=== PATIENT | female | born 1955 | race Caucasian/White ===

== ENCOUNTER 2017-06-28 08:00 | Outpatient (CLI) | payer OTHER ==
[~2017-06-28] VITALS: Ht 142.2 cm; Wt 104.3 kg
[~2017-06-28 08:00] MED LIST: /HCTZ25TA PO; EPIP0.3I2 IM; FLUT50SP; INSUH10VL INJ; INSULANT SC; LISI5TAB PO; LORA10TA2 PO; VITAD1000T PO; [UNRECOGNIZED DRUG - CODE] IV; [UNRECOGNIZED DRUG - CODE] PO
[2017-06-28] MEDS ORDERED: ALTEPLASE 2 MG/2 ML VIAL (J2997 PER 1MG) IV ONE (08:30)
[2017-06-28] MEDS ORDERED: SODIUM CHLORIDE 0.9% INJ 10 ML SYR IV SCH (09:00)
== END 2017-06-28 09:45 | disposition home or self-care (01) ==
LOC: M INFU 08:00
PROVIDERS: ATTEND Surgery
DX: T78.3XXA Angioneurotic edema, initial encounter (principal); Z79.4 Long term (current) use of insulin; Z79.899 Other long term (current) drug therapy
CPT/HCPCS: 36415; 96365; J2997

== ENCOUNTER 2018-02-21 07:28 | Outpatient (CLI) | payer OTHER ==
[2018-02-21] MEDS: ALTEPLASE 2 MG/2 ML VIAL (J2997 PER 1MG) XX (08:11)
[2018-02-21] MEDS: SODIUM CHLORIDE 0.9% INJ 10 ML SYR IV (09:26)
== END 2018-02-21 09:40 | disposition home or self-care (01) ==
LOC: M INFU 07:28
DX: T78.3XXA Angioneurotic edema, initial encounter (principal); Z79.899 Other long term (current) drug therapy; Z79.4 Long term (current) use of insulin
CPT/HCPCS: J2997

== ENCOUNTER 2018-10-02 15:20 | Emergency (ER) | payer OTHER ==
[~2018-10-02] VITALS: Ht 167.6 cm; Wt 109.1 kg
[2018-10-02] MEDS ORDERED: DEXTROSE 50% 50 ML SYRINGE IV STA (15:32)
[2018-10-02] MEDS ORDERED: LANTINJ4 SC (15:52)
[2018-10-02] MEDS ORDERED: CRES10TA32 (15:52)
[2018-10-02] MEDS ORDERED: [UNRECOGNIZED DRUG - CODE] (15:52)
[2018-10-02 15:54] LABS: BASO % 0.1 % (0.0-1.0); EOS % 0.3 % (0.0-3.0); HEMATOCRIT 48.8 % (36.0-47.0); HEMOGLOBIN 15.6 g/dl (12.0-15.5); LYMPH # 1.8 10^3/uL (1.5-4.5); LYMPH % 13.2 % (24.0-44.0); MEAN CORPUSCULAR HEMOGLOBIN 28.5 pg (27.0-33.0); MEAN CORPUSCULAR VOLUME 89.1 fl (80.0-96.0); MONO # 0.6 10^3/uL (0.0-0.8); MONO % 3.9 % (0.0-5.0); NEUTROPHILS # 11.4 10^3/uL (1.8-7.7); NEUTROPHILS % 82.1 % (36.0-66.0); PLATELET COUNT, AUTOMATED 271 10^3/uL (150-450); RED BLOOD COUNT 5.48 10^6/uL (4.00-5.40); WHITE BLOOD COUNT 13.9 10^3/uL (4.0-10.0)
[2018-10-02 16:22] LABS: BLOOD UREA NITROGEN 10 MG/DL (7-18); CARBON DIOXIDE LEVEL 30 MEQ/L (21-32); CHLORIDE LEVEL 104 MEQ/L (98-107); CREATININE FOR GFR 0.67 MG/DL (0.55-1.30); GLOMERULAR FILTRATION RATE > 60.0 (>45); GLUCOSE, FASTING 47 MG/DL (70-100); POTASSIUM SERUM 4.2 MEQ/L (3.5-5.1); SODIUM LEVEL 142 MEQ/L (136-145)
[2018-10-02 17:01] LABS: CPK CREATINE PHOSPHOKINASE 82 U/L (26-192); MB/CK RELATIVE INDEX 1.34 (< OR =4); TROPONIN I < 0.02 NG/ML (< 0.10)
--- NOTE | 2018-10-02 17:44 | REP ---
CHEST PA AND LATERAL: 10/02/2018. Comparison: 09/23/2013. Clinical history: Dizziness. Findings: There is an indwelling port catheter via the right subclavian route terminating in the SVC. Lungs are hypoinflated. There is underlying interstitial fibrotic changes without pleural effusion, dense consolidation or parenchymal mass. Crowding of markings due to hypoinflation. The aorta is tortuous somewhat calcified but not enlarged for this degree of inflation. Airway is intact. There are degenerative changes throughout the spine and shoulders. There is no free air under the diaphragm. Impression. 1. Interstitial fibrosis heaviest in the bases with hypoinflation. 2. No cardiomegaly, edema, effusion or definite acute infiltrate. 3. Degenerative changes in the spine, indwelling port catheter. Electronically Signed by Jayson Calvillo MD 10/02/2018 09:27 P
[2018-10-02 18:50] VITALS: BP 175/76
--- NOTE | 2018-10-03 08:07 | ECGEPIP ---
Stationary ECG Study [facility] - ED Test Date: 2018-10-02 Pat Name: ESTHRE ROMERO Department: Room: - Gender: F [employer] Machine Operator: [facility] [place] : 1955 Requested By: LUNA Marte Order Number: [id number] Reading MD: Mendel Lundberg Measurements Intervals [place] Rate: 77 P: 43 WI: 128 QRS: 20 QRSD: 83 T: 51 QT: 370 QTc: 420 Interpretive Statements SINUS RHYTHM NSTTW ABNORMALITIES NO PRIORS FOR COMPARISON Electronically Signed On 10-03-2018 8:07:27 EST by Mendel Lundberg
== END 2018-10-02 18:55 | disposition home or self-care (01) ==
LOC: M ED 15:20 → EDBD 15:20 → M ED 18:55
DX: E11.649 Type 2 diabetes mellitus with hypoglycemia without coma (principal); E78.9 Disorder of lipoprotein metabolism, unspecified; G47.30 Sleep apnea, unspecified; Z79.899 Other long term (current) drug therapy; Z79.4 Long term (current) use of insulin

== ENCOUNTER → 2018-11-12 | Outpatient (REF) | payer OTHER ==
[~2018-11-12] MED LIST changes: -/HCTZ25TA PO; +CRES10TA32; +HYDR-3644 PO; +LANTINJ4 SC; +[UNRECOGNIZED DRUG - CODE]
== END ==
LOC: M LAB REF 13:14
PROVIDERS: ATTEND Radiology Diagnostic Radiology
DX: R92.1 Mammographic calcification found on diagnostic imaging of breast (principal)

== ENCOUNTER 2022-05-08 09:21 | Emergency (ER) | payer OTHER ==
[~2022-05-08] VITALS: Ht 165.1 cm; Wt 92.3 kg
[~2022-05-08 09:21] MED LIST changes: +CRES10TA; -CRES10TA32
[2022-05-08] MEDS ORDERED: OXYB10TA23 (09:43)
[2022-05-08] MEDS ORDERED: SEMA1PEN2 (09:43)
[2022-05-08] MEDS ORDERED: ROSU10TA6 (09:43)
[2022-05-08 10:36] LABS: APPEARANCE, URINE MANUAL CLOUDY (CLEAR); BILIRUBIN, URINE MANUAL NEGATIVE (NEGATIVE); BLOOD URINE MANUAL POSITIVE (NEGATIVE); COLOR, URINE MANUAL YELLOW (YELLOW); GLUCOSE, URINE (UA) MANUAL NEGATIVE (NEGATIVE); KETONE, URINE MANUAL NEGATIVE (NEGATIVE); LEUKOCYTE ESTERASE, URINE MAN POSITIVE (NEGATIVE); NITRITE, URINE MANUAL POSITIVE (NEGATIVE); PROTEIN, URINE MANUAL 2+ mg/dL (NEGATIVE); UROBILINOGEN, URINE MANUAL NORMAL (NORMAL)
[2022-05-08 10:47] LABS: BACTERIA, URINE LARGE AMOUNT; HYALINE CAST, URINE NONE SEEN /lpf (0-1); SQUAMOUS EPITHELIAL CELL URINE SMALL AMOUNT /hpf (SMALL AMT); WBC, URINE TNTC /hpf (0-3)
[2022-05-08] MEDS ORDERED: NS 1,000 ML IV ONE (11:45)
[2022-05-08] MEDS ORDERED: KETOROLAC 30 MG/ML 1ML VIAL IV ONE (11:45)
[2022-05-08] MEDS ORDERED: MEROPENEM INJ 1 GM in IV 1 EA IV ONE (11:45)
[2022-05-08 12:28] LABS: BASO % 0.3 % (0.0-1.0); EOS % 0.3 % (0.0-3.0); HEMATOCRIT 49.3 % (36.0-47.0); HEMOGLOBIN 15.8 g/dl (12.0-15.5); LYMPH # 2.3 10^3/uL (1.5-5.0); LYMPH % 29.3 % (24.0-44.0); MEAN CORPUSCULAR HEMOGLOBIN 28.7 pg (27.0-33.0); MEAN CORPUSCULAR VOLUME 89.5 fl (80.0-96.0); MONO # 0.7 10^3/uL (0.0-0.8); MONO % 9.1 % (2.0-8.0); NEUTROPHILS # 4.8 10^3/uL (1.5-8.5); NEUTROPHILS % 60.6 % (36.0-66.0); PLATELET COUNT, AUTOMATED 211 10^3/uL (150-450); RED BLOOD COUNT 5.51 10^6/uL (4.00-5.40); WHITE BLOOD COUNT 7.9 10^3/uL (4.0-10.0)
[2022-05-08 13:30] LABS: CALCIUM LEVEL 9.1 MG/DL (8.8-10.2); GLOMERULAR FILTRATION RATE 58.9 (>45); POTASSIUM SERUM 3.8 MEQ/L (3.5-5.1)
[2022-05-08 13:31] LABS: ALBUMIN 3.2 GM/DL (3.2-5.2); BILIRUBIN,DIRECT 0.3 MG/DL (0.0-0.2); BILIRUBIN,TOTAL 0.9 MG/DL (0.2-1.0); TOTAL PROTEIN 7.1 GM/DL (6.4-8.2)
[2022-05-08] MEDS ORDERED: ISOVUE-370 76% 100ML VIAL As Ordered ONE (13:33)
[2022-05-08] MEDS ORDERED: BACT800T5 PO (14:45)
[2022-05-08 15:34] VITALS: BP 139/71
== END 2022-05-08 15:36 | disposition home or self-care (01) ==
LOC: M ED 09:21
DX: N10 Acute pyelonephritis (principal); E11.9 Type 2 diabetes mellitus without complications; Z96.0 Presence of urogenital implants
CPT/HCPCS: 74177; 80048; 80076; 81000; 83605; 85025; 87040; 87635; 96361; 96365; 99284; J1885; J2185; Q9967

== ENCOUNTER → 2022-10-25 | Outpatient (REF) | payer OTHER ==
[~2022-10-25] MED LIST changes: +BACT800T5 PO; +OXYB10TA23; +ROSU10TA6; +SEMA1PEN2
== END ==
LOC: M SFHCDERM 14:17
PROVIDERS: ATTEND Physician Assistant
DX: I78.1 Nevus, non-neoplastic (principal)

== ENCOUNTER → 2023-01-22 | Outpatient (REF) | payer OTHER | LOC: M LAB REF 16:33 | PROVIDERS: ATTEND Surgery | DX: D48.5 Neoplasm of uncertain behavior of skin (principal) ==

== ENCOUNTER → 2023-01-25 | Outpatient (REF) | payer OTHER | LOC: M SFHCDERM 12:04 | PROVIDERS: ATTEND Physician Assistant | DX: D49.2 Neoplasm of unspecified behavior of bone, soft tissue, and skin (principal) ==

== ENCOUNTER → 2023-07-30 | Outpatient (REF) | payer OTHER | LOC: M SFHCDERM 08:28 | PROVIDERS: ATTEND Physician Assistant | DX: C44.619 Basal cell carcinoma of skin of left upper limb, including shoulder (principal) ==

== ENCOUNTER 2024-10-22 13:21 | Emergency (ER) | payer OTHER, MEDICARE ==
[~2024-10-22] VITALS: Ht 165.1 cm; Wt 77.8 kg
[~2024-10-22 13:21] MED LIST changes: -ROSU10TA6; +ROSU10TA61
[2024-10-22] MEDS: IBUPROFEN 600MG TAB PO ONE (16:15)
[2024-10-22 17:11] VITALS: BP 141/70; TEMP 96; O2SAT 97
== END 2024-10-22 17:12 | disposition home or self-care (01) ==
LOC: M ED 13:21
DX: S40.012A Contusion of left shoulder, initial encounter (principal); S16.1XXA Strain of muscle, fascia and tendon at neck level, initial encounter; S06.9X0A Unspecified intracranial injury without loss of consciousness, initial encounter; W00.0XXA Fall on same level due to ice and snow, initial encounter; Y92.009 Unspecified place in unspecified non-institutional (private) residence as the place of occurrence of the external cause; Y93.9 Activity, unspecified; Y99.9 Unspecified external cause status; I10 Essential (primary) hypertension; E11.9 Type 2 diabetes mellitus without complications; E78.5 Hyperlipidemia, unspecified; Z87.442 Personal history of urinary calculi; M47.812 Spondylosis without myelopathy or radiculopathy, cervical region; Z79.4 Long term (current) use of insulin; Z79.899 Other long term (current) drug therapy